=== PATIENT | female | born 1955 | race African-American/Black ===

== ENCOUNTER 2020-03-18 09:18 | Emergency (ER) | payer MEDICAID, OTHER ==
[~2020-03-18] VITALS: Ht 167.6 cm; Wt 80.0 kg
[2020-03-18] MEDS ORDERED: KETOROLAC 60MG/2ML VIAL IM ONE (11:00)
[2020-03-18 12:15] VITALS: BP 148/90
== END 2020-03-18 12:17 | disposition home or self-care (01) ==
LOC: ER 09:18
DX: M10.9 Gout, unspecified (principal); J45.909 Unspecified asthma, uncomplicated
CPT/HCPCS: 96372; 99283; J1885